=== PATIENT | male | born 1985 | race Caucasian/White ===

== ENCOUNTER 2022-03-15 15:26 | Emergency (ER) | payer BC, SELFPAY ==
--- NOTE | 2022-03-15 15:27 | ED.EYEPROB ---
HPI - Eye Problem General Chief complaint: Eye Problems Stated complaint: eye irritation/pink eye Time Seen by Provider: 03/15/22 15:27 Source: patient Mode of arrival: ambulatory Limitations: no limitations History of Present Illness HPI Narrative: Huey is a 36-year-old male patient presenting to the clinic today with complaints of possible pinkeye x1 week. He reports he has been around his children who have had pinkeye last week. He has been taking polymyxin eyedrops that they received and is not improving. He reports itching/discomfort, and drainage from bilateral eyes. He reports that started as right eye and then moved to his left eye Related Data Home Medications Medication Instructions Recorded Confirmed cephalexin 500 mg capsule mg 03/15/22 Allergies Allergy/AdvReac Type Severity Reaction Status Date / Time No Known Allergies Allergy Verified 03/15/22 15:32 Review of Systems Review of Systems: Pertinent positives per HPI. Patient denies any fever, chills, rash, headache, visual changes, dizziness, cough, runny nose, sore throat, shortness of breath, chest pain, palpitations, nausea, vomiting, diarrhea, constipation, abdominal pain, or any urinary issues. PMFSH Comments At the time of my signature, I reviewed and agree with the nursing past medical, surgical, social, and family history. There is no relevant family history pertinent to the patient complaint. Exam Narrative: General: Well-developed, well nourished, in no apparent distress Head: Normocephalic, atraumatic Eyes: Pupils equally round and reactive to light bilaterally, EOM intact, sclera and conjunctive clear, no discharge, lids normal Ears: TMs intact and clear, ear canals clear, no drainage, grossly hearing normal. Nose: Nares patent, no discharge, no inflammation, no sinus tenderness. Mouth: Oropharynx without lesions or masses, good dentition, MMM. Neck: Supple, trachea midline, no enlargement of anterior or posterior cervical nodes, no thyroid masses or goiter palpable. Cardio: Regular rate and rhythm, s1 and s2 normal, no murmur appreciated. Resp: Clear to auscultation bilaterally anteriorly and posteriorly, no rhonchi, rales, wheezing or rubs Course Course Emergency Course: Portions of this record may have been created with voice recognition software. Level of Care: Express Care Visit Vital Signs Vital signs: Vital Signs Temperature 36.6 C 03/15/22 15:35 Pulse Rate 55 L 03/15/22 15:35 Respiratory Rate 16 03/15/22 15:35 Blood Pressure 115/92 H 03/15/22 15:35 Pulse Oximetry 99 03/15/22 15:35 Temperature 36.6 C 03/15/22 15:35 Pulse Rate 55 L 03/15/22 15:35 Respiratory Rate 16 03/15/22 15:35 Blood Pressure 115/92 H 03/15/22 15:35 Pulse Oximetry 99 03/15/22 15:35 Vital signs reviewed MDM - Eye Problem MDM Narrative Medical decision making narrative: At the time of visit patient is resting comfortably on the exam table. I suspect he has bilateral conjunctivitis and will treat him with TobraDex. Prescriptions were sent to his pharmacy and supportive measures were discussed with the patient he voiced understanding of discharge instructions and agrees to treatment plan. Differential Diagnosis Differential diagnosis: Likely conjunctivitis Discharge Plan Discharge Clinical Impression: Bacterial conjunctivitis Patient Disposition: Home, Self-Care Condition: Stable Instructions: Antibiotic Form, Conjunctivitis (ED) Additional Instructions: Take prescription medications only as prescribed-TobraDex Increase fluids and stay well hydrated Tylenol/motrin for pain/fever Practice good handwashing technique Avoid touching you eyes May use warm washcloth to wipe away any discharge Prescriptions: New tobramycin-dexamethasone [TobraDex] 0.3-0.1 % drops,suspension 1 drp LEFT EYE QID 7 Days Qty: 10 0RF tobramycin-dexamethasone [TobraDex] 0.3-0.1 % drops,suspension
[2022-03-15 15:35] VITALS: BP 115/92; PULSE 55; RESP 16; TEMP 36.6; O2SAT 99
== END 2022-03-15 15:45 | disposition home or self-care (01) ==
PROVIDERS: Emergency Provider Nurse Practitioner Family
DX: H10.9 Unspecified conjunctivitis (principal)
CPT/HCPCS: 99203; G0463

== ENCOUNTER 2023-12-27 19:28 | Emergency (ER) | payer BC, SELFPAY ==
--- NOTE | 2023-12-27 19:50 | PC.NURSE ---
pt to internet ecommerce specialist, i am not waiting. I am going to go ahead and go somewhere else.
== END 2023-12-27 20:39 | disposition left against medical advice (07) ==
LOC: ANHED 19:59
DX: Z53.21 Procedure and treatment not carried out due to patient leaving prior to being seen by health care provider (principal)
CPT/HCPCS: 99199